=== PATIENT | male | born 1995 | race Hispanic/Latino ===

== ENCOUNTER 2017-12-19 19:55 | Emergency (ER) | payer OTHER ==
[2017-12-19 20:50] LABS: Bilirubin Negative (Negative); Blood, Urine Negative (Negative); Clarity CLEAR (Clear); Glucose, Urine (Dipstick) Negative (Negative); Leukocyte Negative (Negative); Nitrite Negative (Negative); Protein, Urine (Dipstick) Negative (Neg-Trace); Urobilinogen 0.2 mg/dL (0.2-1.0); pH, Urine 6.5 (5.0-9.0)
--- NOTE | 2017-12-19 23:29 | ULT ---
SCROTAL ULTRASOUND: 12/19/2017 HISTORY: Testicular pain and tenderness for 5-6 days. COMPARISON: None. TECHNIQUE: Multiplanar santos-scale sonographic imaging of the scrotal contents with Doppler interrogation of the bilateral testicles obtained. FINDINGS: The right testicle measures 4.8 x 2.3 x 2.9 cm, and the left testicle measures 4.3 x 2.1 x 2.8 cm. T he epididymal head measures 1.1 x 0.9 x 1.4 cm on the right and 1.0 x 0.9 x 1.1 cm on the left. Ther e is normal blood flow within both testicles. No intratesticular or extratesticular mass lesion. IMPRESSION: Unremarkable scrotal ultrasound. POS: [id number]
== END 2017-12-19 23:51 | disposition home or self-care (01) ==
LOC: ERS 19:55
DX: S39.011A Strain of muscle, fascia and tendon of abdomen, initial encounter (principal); F17.210 Nicotine dependence, cigarettes, uncomplicated; X58.XXXA Exposure to other specified factors, initial encounter
CPT/HCPCS: 76870; 81003; 93976